=== PATIENT | male | born 1975 | race Hispanic/Latino ===

== ENCOUNTER 2018-11-17 08:45 | Outpatient (CLI) | payer OTHER ==
--- NOTE | 2018-11-17 09:41 | RAD ---
4 VIEWS LEFT KNEE: Date; 11/17/18 PROVIDED CLINICAL HISTORY: Knee pain. FINDINGS: No evidence for fracture or other acute osseous abnormality. Alignment appears anatomic. Joint spaces appear preserved. No evidence for significant knee joint capsular distention. IMPRESSION: No evidence for an acute osseous abnormality or significant arthropathy. POS: OFF
--- NOTE | 2018-11-17 09:42 | RAD ---
RIGHT KNEE RADIOGRAPHS FOUR VIEWS: 11/17/2018 PROVIDED CLINICAL HISTORY: Right knee pain. FINDINGS: No evidence for fracture or other acute osseous abnormality. Alignment appears anatomic. Joint spac es appear preserved. No evidence for significant knee joint capsular distention. IMPRESSION: No evidence for an acute osseous abnormality or significant arthropathy. POS: OFF
== END 2018-11-17 08:46 | disposition home or self-care (01) ==
LOC: BICRAD 08:45
PROVIDERS: ATTEND Family Medicine
DX: M25.561 Pain in right knee (principal); M25.562 Pain in left knee